=== PATIENT | female | born 2000 | race Caucasian/White ===

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

== ENCOUNTER 2019-07-02 02:37 | Emergency (ER) | payer MEDICAID ==
[~2019-07-02] VITALS: Ht 152.4 cm; Wt 100.0 kg
[~2019-07-02 02:37] MED LIST changes: +CLIN-90 PO; -CLIN300C85 PO; +PROP20TA6 PO
[2019-07-02 02:40] VITALS: BP 139/81
[2019-07-02] MEDS ORDERED: AZIT250T83 PO (02:43)
[2019-07-02] MEDS ORDERED: IBUP-1984 PO (02:43)
[2019-07-02] MEDS ORDERED: ibuprofen tablet 400 MG TABLET PO ONE (02:45)
== END 2019-07-02 02:54 | disposition home or self-care (01) ==
LOC: ER 02:38
DX: H66.92 Otitis media, unspecified, left ear (principal); F31.9 Bipolar disorder, unspecified; Z88.1 Allergy status to other antibiotic agents; Z79.899 Other long term (current) drug therapy
CPT/HCPCS: 99283

== ENCOUNTER 2019-12-25 09:28 | Emergency (ER) | payer MEDICAID ==
[~2019-12-25] VITALS: Ht 152.4 cm; Wt 112.5 kg
[~2019-12-25 09:28] MED LIST changes: -CLIN-90 PO; +CLIN-97 PO
[2019-12-25 10:15] LABS: URINE HCG NEGATIVE (NEG)
[2019-12-25 10:19] LABS: CLARITY,URINE CLOUDY (Clear); COLOR,URINE YELLOW (Yellow); GLUCOSE, URINE NEGATIVE (Neg); KETONES,URINE 40 mg/dl (Neg); LEUKOCYTE ESTERASE ,URINE NEGATIVE (Neg); NITRITES, URINE NEGATIVE (Neg); OCCULT BLOOD,URINE MODERATE (Neg); PROTEIN,URINE TRACE mg/dl (Neg); UROBILINOGEN,URINE 0.2 E.U/dL (0.2-1.0)
[2019-12-25 10:20] LABS: UA COLLECTION TYPE CLN CATCH MIDSTREAM
[2019-12-25 10:24] LABS: BACTERIA,URINE 3+ /HPF (Neg); MUCUS STRANDS FEW /LPF (Neg); SQUAMOUS EPITHELIAL CELL,UR MANY /LPF (FEW)
[2019-12-25 10:25] LABS: RBC,URINE 0-2 /HPF (0-2); WBC,URINE 0-4 /HPF (0-4)
--- NOTE | 2019-12-25 11:22 | NUR ---
RANDEE Adams made aware patient requesting pain medication.
[2019-12-25] MEDS ORDERED: POLY17PO10 PO (12:06)
[2019-12-25] MEDS ORDERED: DOCU100C40 PO (12:06)
[2019-12-25] MEDS ORDERED: HYDR25SU32 RC (12:06)
[2019-12-25] MEDS ORDERED: ketorolac trometh. 30mg/ml inj. IM ONE (12:10)
[2019-12-25 12:26] VITALS: BP 112/64
== END 2019-12-25 12:28 | disposition home or self-care (01) ==
LOC: ER 09:29
DX: K62.89 Other specified diseases of anus and rectum (principal); R19.7 Diarrhea, unspecified; M54.5 Low back pain; R11.0 Nausea; F31.9 Bipolar disorder, unspecified; Z88.1 Allergy status to other antibiotic agents; Z79.2 Long term (current) use of antibiotics; Z79.899 Other long term (current) drug therapy
CPT/HCPCS: 81001; 81025; 96372; 99283; J1885

== ENCOUNTER 2022-10-06 10:15 | Emergency (ER) | payer MEDICAID ==
[~2022-10-06] VITALS: Ht 152.4 cm; Wt 129.2 kg
[~2022-10-06 10:15] MED LIST changes: +DOCU100C40 PO; +HYDR25SU32 RC
[2022-10-06 10:28] VITALS: BP 125/98
--- NOTE | 2022-10-06 10:41 | NUR ---
PT PRESENTS TO THE ER FOR POSSIBLE EAR INFECTION. PT REPORTS MOUTH PAIN, EAR PAIN, COUGH. PT AFEBRILE. PT REPORTS SYMPTOMS FOR 2 DAYS.
[2022-10-06] MEDS ORDERED: ibuprofen 200mg tablet PO ONE (11:45)
[2022-10-06] MEDS ORDERED: cefuroxime axetil 250mg tablet PO ONE (11:45)
[2022-10-06] MEDS ORDERED: CEFU500T66 PO (12:48)
== END 2022-10-06 13:00 | disposition home or self-care (01) ==
LOC: ER 10:15
DX: J06.9 Acute upper respiratory infection, unspecified (principal); H66.92 Otitis media, unspecified, left ear; F31.9 Bipolar disorder, unspecified; Z88.1 Allergy status to other antibiotic agents
CPT/HCPCS: 71045; 99283

== ENCOUNTER 2024-01-11 11:54 | Emergency (ER) | payer MEDICAID ==
[~2024-01-11] VITALS: Ht 152.4 cm; Wt 136.2 kg
[~2024-01-11 11:54] MED LIST changes: +CEFU500T66 PO
[2024-01-11 12:34] VITALS: BP 128/84; PULSE 127; RESP 19; O2SAT 95
[2024-01-11 13:04] LABS: STREP A SCREEN NEGATIVE (Neg)
[2024-01-11] MEDS ORDERED: IBUP-1984 PO (13:31)
[2024-01-11] MEDS ORDERED: ACET-1025 PO (13:34)
[2024-01-11 14:09] VITALS: TEMP 100.2
== END 2024-01-11 14:10 | disposition home or self-care (01) ==
LOC: ER 11:55
DX: J02.9 Acute pharyngitis, unspecified (principal); R50.9 Fever, unspecified; R09.81 Nasal congestion; F31.9 Bipolar disorder, unspecified; Z20.822 Contact with and (suspected) exposure to COVID-19; Z88.1 Allergy status to other antibiotic agents; Z79.2 Long term (current) use of antibiotics; Z79.1 Long term (current) use of non-steroidal anti-inflammatories (NSAID); Z79.899 Other long term (current) drug therapy; Z85.3 Personal history of malignant neoplasm of breast
CPT/HCPCS: 36415; 87077; 87081; 87502; 87503; 87811; 87880; 99283

== ENCOUNTER 2024-04-15 23:00 | Emergency (ER) | payer MEDICAID ==
[~2024-04-15] VITALS: Ht 152.4 cm; Wt 138.0 kg
[2024-04-15 23:50] LABS: STREP A SCREEN NEGATIVE (Neg)
[2024-04-16 00:43] VITALS: BP 128/90; PULSE 81; RESP 20; O2SAT 98
[2024-04-16] MEDS: diphenhydrAMINE 25 MG/10 ML UD oral solution PO ONE (01:35)
[2024-04-16] MEDS: dexamethasone 4mg tablet PO ONE (01:35)
[2024-04-16 02:37] VITALS: TEMP 98
== END 2024-04-16 02:38 | disposition home or self-care (01) ==
LOC: ER 23:01
DX: J02.8 Acute pharyngitis due to other specified organisms (principal); Z20.822 Contact with and (suspected) exposure to COVID-19; B97.89 Other viral agents as the cause of diseases classified elsewhere; R07.89 Other chest pain; R11.0 Nausea; Z88.1 Allergy status to other antibiotic agents; Z79.2 Long term (current) use of antibiotics; Z79.899 Other long term (current) drug therapy
CPT/HCPCS: 36415; 87081; 87502; 87503; 87811; 87880; 99283; Q0163

== ENCOUNTER 2024-04-17 23:25 | Emergency (ER) | payer MEDICAID ==
[~2024-04-17] VITALS: Ht 152.4 cm; Wt 136.4 kg
[2024-04-18 00:53] LABS: BASOPHILS # (AUTO) 0.1 X10'3 (0-0.2); BASOPHILS % (AUTO) 0.7 % (0-1); EOSINOPHILS # (AUTO) 0.5 X10'3 (0-0.9); EOSINOPHILS % (AUTO) 2.9 % (0-6); HEMATOCRIT 37.5 % (35.0-45.0); HEMOGLOBIN 12.6 g/dl (12.0-16.0); LYMPHOCYTES # (AUTO) 3.7 X10'3 (1.1-4.8); LYMPHOCYTES % (AUTO) 23.5 % (21-51); MEAN CORPUSCULAR HGB CONC 33.6 g/dL (33.0-36.5); MEAN CORPUSCULAR VOLUME 83.3 FL (78-98); MEAN PLATELET VOLUME 9.7 FL (7.4-10.4); MONOCYTES # (AUTO) 1.3 X10'3 (0-0.9); NEUTROPHILS # (AUTO) 10.3 X10'3 (1.8-7.7); NEUTROPHILS % (AUTO) 64.9 % (42-75); PLATELET COUNT 324 X10'3 (140-440); RED CELL DISTRIBUTION WIDTH 14.4 % (11.5-14.5); WHITE BLOOD COUNT 15.9 X10'3 (4.5-11.0)
[2024-04-18 00:57] LABS: ALBUMIN 3.2 G/DL (3.4-5.0); ANION GAP 12 (8-16); BLOOD UREA NITROGEN 13 MG/DL (7-18); BUN/CREATININE RATIO 15.3 (10.0-20.0); CALCIUM 8.2 MG/DL (8.5-10.1); CHLORIDE 107 MMOL/L (99-107); CREATININE 0.85 MG/DL (0.40-0.90); GLUCOSE 100 MG/DL (70-104); SODIUM 144 MMOL/L (135-145); TOTAL CARBON DIOXIDE 25.5 MMOL/L (24-32); eCRCL 73 ML/MIN; eGFR > 90 ML/MIN
[2024-04-18 01:13] LABS: POTASSIUM 3.1 MMOL/L (3.5-5.1)
[2024-04-18] MEDS: ibuprofen tablet 400 MG TABLET PO ONE (01:19)
[2024-04-18] MEDS: acetaminophen 325mg tablet PO ONE (01:19)
[2024-04-18 01:38] LABS: BILIRUBIN,URINE NEGATIVE (Neg); CLARITY,URINE CLEAR (Clear); COLOR,URINE YELLOW (Yellow); GLUCOSE, URINE NEGATIVE (Neg); KETONES,URINE NEGATIVE (Neg); LEUKOCYTE ESTERASE ,URINE NEGATIVE (Neg); NITRITES, URINE NEGATIVE (Neg); OCCULT BLOOD,URINE TRACE-INTACT (Neg); PH,URINE 6.5 (4.8-8.0); PROTEIN,URINE NEGATIVE (Neg); UROBILINOGEN,URINE 0.2 E.U/dL (0.2-1.0)
[2024-04-18 01:47] LABS: UA COLLECTION TYPE CLN CATCH MIDSTREAM
[2024-04-18 01:48] LABS: BACTERIA,URINE 1+ /HPF (Neg); RBC,URINE 0-2 /HPF (0-2); SQUAMOUS EPITHELIAL CELL,UR MANY /LPF (FEW); WBC,URINE 0-4 /HPF (0-4)
[2024-04-18] MEDS ORDERED: IBUP-1984 PO (01:53)
[2024-04-18] MEDS ORDERED: ACET-812 PO (01:53)
[2024-04-18] MEDS ORDERED: ALBU18HF2 IH (01:57)
[2024-04-18] MEDS: potassium Cl 20 mEq SR tablet PO STA (02:05)
[2024-04-18 02:10] VITALS: BP 132/85; PULSE 81; RESP 16; O2SAT 96
== END 2024-04-18 02:21 | disposition home or self-care (01) ==
LOC: ER 23:26
DX: J06.9 Acute upper respiratory infection, unspecified (principal); E87.6 Hypokalemia; R05.9 Cough, unspecified; R07.9 Chest pain, unspecified; F17.200 Nicotine dependence, unspecified, uncomplicated; C50.919 Malignant neoplasm of unspecified site of unspecified female breast; Z88.0 Allergy status to penicillin; Z88.1 Allergy status to other antibiotic agents; Z88.6 Allergy status to analgesic agent; Z88.8 Allergy status to other drugs, medicaments and biological substances
CPT/HCPCS: 36415; 71045; 80048; 81001; 83605; 84145; 85025; 87040; 99284

== ENCOUNTER 2024-05-13 21:26 | Emergency (ER) | payer MEDICAID ==
[~2024-05-13] VITALS: Ht 152.4 cm; Wt 150.0 kg
[~2024-05-13 21:26] MED LIST changes: +ACET-812 PO; +ALBU18HF2 IH
[2024-05-13] MEDS: ketorolac trometh 15mg/ml vial 15 MG/ML ML IM ONE (22:51)
[2024-05-13] MEDS: LIDOcaine 5% patch TP STA (22:51)
[2024-05-13] MEDS ORDERED: BACL10TA2 PO (23:05)
[2024-05-13] MEDS ORDERED: LIDO700A32 TD (23:05)
[2024-05-13] MEDS ORDERED: IBUP-1984 PO (23:05)
[2024-05-13 23:17] VITALS: BP 140/82; PULSE 89; RESP 16; TEMP 98.7; O2SAT 99
== END 2024-05-13 23:25 | disposition home or self-care (01) ==
LOC: ER 21:26
DX: M54.2 Cervicalgia (principal); Z88.8 Allergy status to other drugs, medicaments and biological substances; Z88.1 Allergy status to other antibiotic agents; V43.52XA Car driver injured in collision with other type car in traffic accident, initial encounter; Y93.89 Activity, other specified; Y92.410 Unspecified street and highway as the place of occurrence of the external cause; Y99.8 Other external cause status
CPT/HCPCS: 96372; 99283; J1885

== ENCOUNTER 2024-09-20 01:50 | Emergency (ER) | payer MEDICAID ==
[~2024-09-20] VITALS: Ht 152.4 cm; Wt 139.2 kg
[~2024-09-20 01:50] MED LIST changes: +BACL10TA2 PO; +LIDO700A32 TD
[2024-09-20] MEDS: ibuprofen tablet 400 MG TABLET PO ONE (04:17)
[2024-09-20] MEDS: oxyCODONE IR 5mg (immed. release) tablet PO ONE (04:17)
[2024-09-20 04:38] VITALS: BP 129/77; PULSE 82; RESP 16; TEMP 98.5; O2SAT 100
== END 2024-09-20 04:45 | disposition home or self-care (01) ==
LOC: ER 01:51
DX: S46.212A Strain of muscle, fascia and tendon of other parts of biceps, left arm, initial encounter (principal); Z88.1 Allergy status to other antibiotic agents; Z79.1 Long term (current) use of non-steroidal anti-inflammatories (NSAID); Z79.899 Other long term (current) drug therapy; X58.XXXA Exposure to other specified factors, initial encounter; Y93.89 Activity, other specified; Y92.89 Other specified places as the place of occurrence of the external cause; Y99.8 Other external cause status
CPT/HCPCS: 99282; A4565